=== PATIENT | female | born 2005 | race Caucasian/White ===

== ENCOUNTER 2023-03-05 14:15 | Emergency (ER) | payer MEDICAID, OTHER ==
[~2023-03-05] VITALS: Ht 162.6 cm; Wt 72.0 kg
[2023-03-05 15:04] VITALS: BP 112/72
[2023-03-05] MEDS ORDERED: IBUPROFEN 600MG TABLET PO STA (15:04)
[2023-03-05] MEDS ORDERED: BO1 TP (16:46)
[2023-03-05] MEDS ORDERED: CYCL5TAB PO (16:46)
[2023-03-05] MEDS ORDERED: NAPR-681 PO (16:46)
== END 2023-03-05 17:38 | disposition home or self-care (01) ==
LOC: ER 14:15
DX: S16.1XXA Strain of muscle, fascia and tendon at neck level, initial encounter (principal); M25.532 Pain in left wrist; R07.89 Other chest pain; V49.9XXA Car occupant (driver) (passenger) injured in unspecified traffic accident, initial encounter; Y93.89 Activity, other specified; Y92.89 Other specified places as the place of occurrence of the external cause; Y99.8 Other external cause status
CPT/HCPCS: 71046; 73110; 99284